=== PATIENT | male | born 1955 | race Caucasian/White ===

== ENCOUNTER 2021-01-08 18:17 | Emergency (ER) | payer BC ==
[~2021-01-08] VITALS: Ht 185.4 cm; Wt 86.4 kg
[~2021-01-08 18:17] MED LIST: ALBU6.7H9 INH; COR3.125T PO; FURO40TA4 PO; KEN0.1O TOP; LISI2.5T2 PO; LYR75C PO; MOME45CR3 TOP; POTA10TA36 PO; SPIR25TA PO; THIA100T70 PO
[2021-01-08 19:09] LABS: BASOPHILS % (AUTO) 0.3 % (0-1); EOSINOPHILS # (AUTO) 0.1 X10'3 (0-0.9); EOSINOPHILS % (AUTO) 1.2 % (0-6); HEMATOCRIT 48.2 % (42.0-52.0); HEMOGLOBIN 15.9 g/dl (14.0-17.9); LYMPHOCYTES # (AUTO) 3.1 X10'3 (1.1-4.8); LYMPHOCYTES % (AUTO) 35.5 % (21-51); MEAN CORPUSCULAR HEMOGLOBIN 34.3 PG (27.0-31.0); MEAN CORPUSCULAR HGB CONC 33.1 g/dL (33.0-36.5); MEAN CORPUSCULAR VOLUME 103.6 FL (78-98); MEAN PLATELET VOLUME 7.4 FL (7.4-10.4); MONOCYTES # (AUTO) 0.9 X10'3 (0-0.9); MONOCYTES % (AUTO) 10.2 % (2-12); NEUTROPHILS # (AUTO) 4.6 X10'3 (1.8-7.7); NEUTROPHILS % (AUTO) 52.8 % (42-75); PLATELET COUNT 264 X10'3 (140-440); RED BLOOD COUNT 4.65 X10'6 (4.70-6.10); RED CELL DISTRIBUTION WIDTH 13.9 % (11.5-14.5); WHITE BLOOD COUNT 8.7 X10'3 (4.5-11.0)
[2021-01-08 19:16] LABS: ALANINE AMINOTRANSFERASE 36 U/L (12-78); ALBUMIN 3.3 G/DL (3.4-5.0); ALBUMIN/GLOBULIN RATIO 0.9 (1.1-1.5); ALKALINE PHOSPHATASE 216 IU/L (46-116); ANION GAP 9 (8-16); ASPARTATE AMINO TRANSFERASE 37 U/L (10-37); BILIRUBIN,TOTAL 0.5 MG/DL (0.1-1.0); BLOOD UREA NITROGEN 23 MG/DL (7-18); BUN/CREATININE RATIO 23.7 (5.4-32.0); CALCIUM 9.2 MG/DL (8.5-10.1); CHLORIDE 98 MMOL/L (99-107); CREATININE 0.97 MG/DL (0.60-1.10); GLUCOSE 89 MG/DL (70-104); POTASSIUM 5.2 MMOL/L (3.5-5.1); SODIUM 134 MMOL/L (135-145); TOTAL CARBON DIOXIDE 27.5 MMOL/L (24-32); TOTAL PROTEIN 7.1 G/DL (6.4-8.2); eGFR 77 ML/MIN
[2021-01-08] MEDS ORDERED: HYDROcodone/acetaminophen 10/325mg tab PO ONE (19:55)
--- NOTE | 2021-01-08 19:58 | NUR ---
PT REPORTING PAIN, HUNGER AND NEEDING A BLANKET. ALL ITEMS PROVIDED. VERBAL ORDER FOR NORCO 10MG PER MD CONNORS.
--- NOTE | 2021-01-08 20:26 | NUR ---
WHEN PT WAS GIVEN CARRIE HE STATED, "THAT WON'T EVEN SCRATCH THE SURFACE" -
--- NOTE | 2021-01-08 21:16 | NUR ---
BREAKING PRIMARY RN, WILL MONITOR
--- NOTE | 2021-01-08 21:30 | NUR ---
BREAKING PRIMARY RN, WILL CONT TO MONITOR
[2021-01-08] MEDS ORDERED: furosemide 10 MG/1 ML 10ml inj IV ONE (22:25)
[2021-01-08] MEDS ORDERED: THIA100T70 PO (23:41)
[2021-01-08] MEDS ORDERED: POTA10TA36 PO (23:41)
[2021-01-08] MEDS ORDERED: FURO40TA4 PO (23:41)
[2021-01-08] MEDS ORDERED: LYR75C PO (23:41)
[2021-01-08] MEDS ORDERED: LISI2.5T2 PO (23:41)
[2021-01-08] MEDS ORDERED: SPIR25TA PO (23:41)
[2021-01-08] MEDS ORDERED: COR3.125T PO (23:41)
--- NOTE | 2021-01-09 00:13 | NUR ---
Patient attempted to call his daughter on his cell phone, went right to voicemail. Patient lives alone and does not know his daughter's address.
--- NOTE | 2021-01-09 00:20 | NUR ---
Patient passed gait test and given rx for his chronic medical conditions and taxi is called to transport patient to his house; taxi soonest arrival time is in 2 hrs. Patient given urinal and more warm blankets.
[2021-01-09 00:22] VITALS: BP 122/93
[2021-01-10] MEDS ORDERED: PREG75CA75 PO (12:01)
[2021-01-10] MEDS ORDERED: FURO40TA4 PO (12:01)
[2021-01-10] MEDS ORDERED: SPIR25TA5 PO (12:01)
[2021-01-10] MEDS ORDERED: CARV3.122 PO (12:01)
[2021-01-10] MEDS ORDERED: LISI2.5T89 PO (12:01)
[2021-01-10] MEDS ORDERED: POTA10TA PO (12:01)
== END 2021-01-09 00:05 | disposition home or self-care (01) ==
LOC: ER 18:17
DX: R60.0 Localized edema (principal); I50.9 Heart failure, unspecified; Z76.0 Encounter for issue of repeat prescription; J44.9 Chronic obstructive pulmonary disease, unspecified; F17.200 Nicotine dependence, unspecified, uncomplicated; F15.90 Other stimulant use, unspecified, uncomplicated; Z72.89 Other problems related to lifestyle; Z88.8 Allergy status to other drugs, medicaments and biological substances; Z79.899 Other long term (current) drug therapy
CPT/HCPCS: 36415; 71045; 80053; 83880; 84484; 85025; 93005; 96374; 99285; J1940

== ENCOUNTER 2021-01-21 13:47 | Emergency (ER) | payer BC ==
[~2021-01-21] VITALS: Ht 185.4 cm; Wt 86.4 kg
[~2021-01-21 13:47] MED LIST changes: +CARV3.122 PO; -COR3.125T PO; -LISI2.5T2 PO; +LISI2.5T89 PO; -LYR75C PO; +POTA10TA PO; -POTA10TA36 PO; +PREG75CA75 PO; -SPIR25TA PO; +SPIR25TA5 PO; -THIA100T70 PO
[2021-01-21 14:07] VITALS: BP 101/70
--- NOTE | 2021-01-21 15:20 | NUR ---
JULIUS VALDEZ AT BEDSIDE TO OBSERVE GAIT TEST WITH PULSE OX.
== END 2021-01-21 16:09 | disposition home or self-care (01) ==
LOC: ER 13:47
DX: Z02.89 Encounter for other administrative examinations (principal); I50.9 Heart failure, unspecified; J43.9 Emphysema, unspecified; F15.90 Other stimulant use, unspecified, uncomplicated; Z72.89 Other problems related to lifestyle; Z88.6 Allergy status to analgesic agent; Z79.899 Other long term (current) drug therapy
CPT/HCPCS: 93005; 99284

== ENCOUNTER 2021-03-26 13:24 | Emergency (ER) | payer BC ==
[~2021-03-26] VITALS: Ht 172.7 cm; Wt 81.8 kg
[~2021-03-26 13:24] MED LIST changes: +CEPH-585 PO; +FLO44IN IH; -KEN0.1O TOP; -MOME45CR3 TOP; -PREG75CA75 PO; +TIOT18CA3 INH
[2021-03-26 14:28] LABS: BASOPHILS % (AUTO) 0.4 % (0-1); EOSINOPHILS % (AUTO) 0.6 % (0-6); HEMATOCRIT 41.4 % (42.0-52.0); HEMOGLOBIN 14.1 g/dl (14.0-17.9); LYMPHOCYTES # (AUTO) 1.7 X10'3 (1.1-4.8); LYMPHOCYTES % (AUTO) 20.6 % (21-51); MEAN CORPUSCULAR HEMOGLOBIN 34.6 PG (27.0-31.0); MEAN CORPUSCULAR VOLUME 101.8 FL (78-98); MEAN PLATELET VOLUME 7.6 FL (7.4-10.4); MONOCYTES # (AUTO) 0.8 X10'3 (0-0.9); MONOCYTES % (AUTO) 10.3 % (2-12); NEUTROPHILS # (AUTO) 5.6 X10'3 (1.8-7.7); NEUTROPHILS % (AUTO) 68.1 % (42-75); PLATELET COUNT 312 X10'3 (140-440); RED BLOOD COUNT 4.07 X10'6 (4.70-6.10); RED CELL DISTRIBUTION WIDTH 18.3 % (11.5-14.5); WHITE BLOOD COUNT 8.2 X10'3 (4.5-11.0)
[2021-03-26 14:42] LABS: ALANINE AMINOTRANSFERASE 28 U/L (12-78); ALBUMIN 2.2 G/DL (3.4-5.0); ALBUMIN/GLOBULIN RATIO 0.7 (1.1-1.5); ALKALINE PHOSPHATASE 398 IU/L (46-116); ANION GAP 7 (8-16); ASPARTATE AMINO TRANSFERASE 109 U/L (10-37); BLOOD UREA NITROGEN 9 MG/DL (7-18); C-REACTIVE PROTEIN 3.05 MG/DL (0.0-0.5); CALCIUM 8.1 MG/DL (8.5-10.1); CHLORIDE 97 MMOL/L (99-107); CREATININE 0.69 MG/DL (0.60-1.10); GLUCOSE 88 MG/DL (70-104); LIPASE < 50 U/L (73-393); POTASSIUM 4.3 MMOL/L (3.5-5.1); SODIUM 132 MMOL/L (135-145); TOTAL CARBON DIOXIDE 28.5 MMOL/L (24-32); TOTAL PROTEIN 5.2 G/DL (6.4-8.2); eGFR > 90 ML/MIN
[2021-03-26] MEDS ORDERED: ondansetron/PF 4mg/2ml inj IV ONE (15:35)
[2021-03-26] MEDS ORDERED: normal saline 1000ML IV soln IVB ONE (15:35)
[2021-03-26 16:02] VITALS: BP 107/60
--- NOTE | 2021-03-26 16:38 | NUR ---
patient reports he can't give urine sample at this time, "give me 15-20 more minutes!".
--- NOTE | 2021-03-26 16:40 | NUR ---
PT GIVEN PO CHALLENGE AND ATE WITHOUT DIFFICULTY OR NAUSEA
[2021-03-26] MEDS ORDERED: LOPE2CAP PO (16:59)
== END 2021-03-26 17:06 | disposition home or self-care (01) ==
LOC: ER 13:24
DX: R19.7 Diarrhea, unspecified (principal); I50.9 Heart failure, unspecified; J43.9 Emphysema, unspecified; F15.90 Other stimulant use, unspecified, uncomplicated; Z72.89 Other problems related to lifestyle; Z88.1 Allergy status to other antibiotic agents; Z79.899 Other long term (current) drug therapy
CPT/HCPCS: 36415; 80053; 83690; 85025; 85651; 86140; 96361; 96374; 99283; J2405; J7030